=== PATIENT | female | born 1965 | race Two or more races ===

== ENCOUNTER → 2016-12-01 | Outpatient (CLI) | payer BC ==
[~2016-12-01] MED LIST: MAGN500T2 PO; MULTTAB67 PO; [UNRECOGNIZED DRUG - OTHER]
[2016-12-01 12:21] LABS: MEAN CORPUSCULAR HGB CONC 29.5 % (32.0-36.0)
[2016-12-01 15:10] LABS: BLOOD, URINE NEG (NEG); GLUCOSE,URINE NEG (NEG); KETONE, URINE NEG (NEG); NITRITE,URINE NEG (NEG); PH, URINE 5.5 (5.0-8.5); URINE COLOR LIGHT-YELLOW (YELLW/STRAW)
[2016-12-01 15:13] LABS: BASOPHIL % 1.1 % (0.0-2.0); EOSINOPHIL # 0.1 TH/MM3 (0-0.4); HEMATOCRIT 30.4 % (35.0-46.0); HEMO FLAGS DIFF FINAL; LYMPHOCYTE # 1.2 TH/MM3 (1.0-4.8); MEAN CORPUSCULAR HEMOGLOBIN 20.9 PG (27.0-34.0); MONO % 9.1 % (0.0-8.0); NEUT % 54.8 % (16.0-70.0); PLATELET COUNT 344 TH/MM3 (150-450); RED BLOOD COUNT 4.28 MIL/MM3 (4.00-5.30); RED CELL DISTRIBUTION WIDTH 22.7 % (11.6-17.2); WHITE BLOOD COUNT 3.7 TH/MM3 (4.0-11.0)
[2016-12-01 15:18] LABS: COMMENT (UR) CULT NOT INDICATED; CULTURE IF INDICATED CULT NOT INDICATED
--- NOTE | 2016-12-02 17:42 | EKG ---
Date Performed: 12/01/2016 Time Performed: 12:40:07 PTAGE: 51 years EKG: Sinus rhythm LOW QRS VOLTAGE IN PRECORDIAL LEADS POSSIBLE ANTERIOR MYOCARDIAL INFARCTION, OF INDETERMINATE AGE AB NORMAL ECG NO PREVIOUS TRACING DOCTOR: Naomy Mcgill Interpretating Date/Time 12/02/2016 17:36:56
== END ==
LOC: CPRE 12:09
PROVIDERS: ATTEND Obstetrics & Gynecology
DX: Z01.810 Encounter for preprocedural cardiovascular examination (principal); Z01.812 Encounter for preprocedural laboratory examination; N92.0 Excessive and frequent menstruation with regular cycle; D50.0 Iron deficiency anemia secondary to blood loss (chronic); D25.9 Leiomyoma of uterus, unspecified; R94.31 Abnormal electrocardiogram [ECG] [EKG]
CPT/HCPCS: 81001; 84703; 85025; 93005

== ENCOUNTER → 2016-12-03 | Day surgery (SDC) | payer BC ==
--- NOTE | 2016-12-02 14:53 | MH ---
cc: MARTA CAMPUZANO DATE OF ADMISSION: 12/03/2016 ADMISSION DIAGNOSIS Menorrhagia, dysmenorrhea with fibroids. HISTORY OF PRESENT ILLNESS The patient is a 51-year-old female, para 1-0-0-1 with a 1-year history of increasing menstrual flow, menstrual pain and some symptoms dating back to total of 7 years. Her vaginal ultrasound from 11/04/2016 showed multiple fibroids and a suspicious vascular lesion in the lower uterine segment. Ovaries appeared normal. Uterine length was 11.5 cm. She is now admitted for hysteroscopy, D&C. PAST MEDICAL HISTORY PREVIOUS SURGERY None. MEDICATIONS Vitamins. ALLERGIES None. TRANSFUSIONS None. OBSTETRICAL HISTORY Vaginal 1982. SOCIAL HISTORY Graphic Design Intern. . Alcohol occasional. Tobacco none. Drugs none. PHYSICAL EXAMINATION GENERAL: A well-nourished, well-developed female. VITAL SIGNS: Stable. HEENT: Exam is normal. CHEST: Chest is clear. HEART: Regular rate. BREASTS: Symmetrical. ABDOMEN: Benign. PELVIC: Vagina is normal. Cervix is normal. The uterus is enlarged at 14 weeks size. Adnexa nonpalpable. ASSESSMENT As above. PLAN She is now admitted for hysteroscopy, D&C. While in the office I explained the procedure, the risks and benefits and possible need for hysterectomy. The patient elected to proceed. MD TOBIAS Diallo/TLL /1:49 PM /2:34 PM
[~2016-12-03] VITALS: Ht 154.9 cm; Wt 61.0 kg
[~2016-12-03] MED LIST changes: +ACETAMINOPHEN 1000 MG/100 ML VIAL IV SCH; +CHLORHEXIDINE GLUCONATE 2 % 1 PACK (2 CLOTHS) TOPICAL PRN; +DO NOT ADM ANY ANTICOAGULANT DRUGS PRN; +INSULIN HUMAN REGULAR 1,000 UNITS/10 ML VIAL SQ PRN; +KETOROLAC TROMETHAMINE 60 MG/2 ML (IM) VIAL IM ONE; +LACTATED RINGER'S 1000 ML IV PRN; +METOCLOPRAMIDE HCL 10 MG/2 ML VIAL IV PRN; +METOPROLOL TARTRATE 25 MG TAB PO PRN; +ONDANSETRON HCL 4 MG/2 ML VIAL IV PUSH ONE; +POVIDONE IODINE 5% (ANTISEPSIS KIT) 4 APPLICATIONS EACH NARE PRN; +PROPOFOL 200 MG/20 ML AMP IV ONE; +SODIUM CHLORID 0.9% 500 ML IV PRN; +ceFAZolin 1,000 MG/NS 100 ML IV SCH
[2016-12-03 06:09] VITALS: BP 155/57; PULSE 61; RESP 16; TEMP 98; O2SAT 100
[2016-12-03 09:56] VITALS: BP 115/60; PULSE 60; RESP 16; TEMP 97.5; O2SAT 100
--- NOTE | 2016-12-03 17:39 | MP ---
cc: MARTA CAMPUZANO DATE OF SURGERY 12/03/16 PREOPERATIVE DIAGNOSIS Menorrhagia, dysmenorrhea and anemia secondary to fibroids. POSTOPERATIVE DIAGNOSIS Menorrhagia, dysmenorrhea and anemia secondary to fibroids, multiple submucosal fibroids. ANESTHESIA General LMA SURGEON Hilario Campuzano MD ESTIMATED BLOOD LOSS About 30 mL FLUIDS About half liter crystalloid. OBJECTIVE FINDINGS Following induction of adequate general LMA anesthesia, the patient was prepped and draped supine on the operating table dorsal lithotomy position usual sterile fashion with the bladder being drained via urinary catheterization. Exam reveals a uterus about 14 weeks size with multiple fibroids. Adnexa nonpalpable. Heavy weighted speculum was placed posterior fornix of vagina. Anterior lip of the cervix grasped with single tooth tenaculum. Cervix, uterus sounded to 12 cm with the soft dilator. Careful dilation was required as there appeared to be a firm mass about 3 cm inside the external os. After dilations to 18 Hanks a scope was passed, revealed a cervical lower segment fibroid submucosal and multiple fundal submucosal fibroids. Endocervical curettings were obtained with a small serrated curet and using a small sharp curette and the scope passed again to ensure there were no polyps. Scope was now removed intact. Speculum was removed. There was no bleeding. All instruments removed. All counts were correct. [facility] She was awaken and taken to the recovery room in good condition. MD TOBIAS Diallo/ /7:45 AM /5:37 PM RIMMA
== END | disposition home or self-care (01) ==
LOC: HSDC 05:10 → EDUNIT# 07:15
PROVIDERS: ATTEND Obstetrics & Gynecology
DX: N92.0 Excessive and frequent menstruation with regular cycle (principal); D25.0 Submucous leiomyoma of uterus; D50.0 Iron deficiency anemia secondary to blood loss (chronic)
CPT/HCPCS: 00952; 58558; 88305; J1885; J2405; J3010

== ENCOUNTER 2017-04-18 20:21 | Emergency (ER) | payer OTHER, BC ==
[~2017-04-18 20:21] MED LIST changes: -ACETAMINOPHEN 1000 MG/100 ML VIAL IV SCH; -CHLORHEXIDINE GLUCONATE 2 % 1 PACK (2 CLOTHS) TOPICAL PRN; -DO NOT ADM ANY ANTICOAGULANT DRUGS PRN; -INSULIN HUMAN REGULAR 1,000 UNITS/10 ML VIAL SQ PRN; -KETOROLAC TROMETHAMINE 60 MG/2 ML (IM) VIAL IM ONE; -LACTATED RINGER'S 1000 ML IV PRN; -METOCLOPRAMIDE HCL 10 MG/2 ML VIAL IV PRN; -METOPROLOL TARTRATE 25 MG TAB PO PRN; -ONDANSETRON HCL 4 MG/2 ML VIAL IV PUSH ONE; -POVIDONE IODINE 5% (ANTISEPSIS KIT) 4 APPLICATIONS EACH NARE PRN; -PROPOFOL 200 MG/20 ML AMP IV ONE; -SODIUM CHLORID 0.9% 500 ML IV PRN; -ceFAZolin 1,000 MG/NS 100 ML IV SCH
[2017-04-18 20:24] VITALS: BP 150/70; PULSE 70; RESP 16; TEMP 98.5; O2SAT 100
[2017-04-18] MEDS ORDERED: KETOROLAC TROMETHAMINE 60 MG/2 ML (IM) VIAL IM ONE (21:30)
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
[2017-04-18] MEDS ORDERED: CYCL10TA PO (23:10)
[2017-04-18] MEDS ORDERED: CYCLOBENZAPRINE HCL 10 MG TAB PO ONE (23:30)
== END 2017-04-18 23:23 | disposition home or self-care (01) ==
LOC: NEPD 20:21
DX: S39.012A Strain of muscle, fascia and tendon of lower back, initial encounter (principal); Z79.899 Other long term (current) drug therapy; Z72.0 Tobacco use; V43.62XA Car passenger injured in collision with other type car in traffic accident, initial encounter
CPT/HCPCS: 70450; 71010; 72125; 72128; 72131; 73030; 96372; 99285; J1885